=== PATIENT | female | born 2000 | race Caucasian/White ===

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

== ENCOUNTER → 2021-08-29 | Outpatient (CLI) | payer BC | LOC: COL.RAD 10:59 | DX: M51.34 Other intervertebral disc degeneration, thoracic region (principal); R63.4 Abnormal weight loss | CPT/HCPCS: Q9967 ==

== ENCOUNTER → 2022-10-11 | Day surgery (SDC) | payer BC ==
[~2022-10-11] VITALS: Ht 160 cm; Wt 46.6 kg
[~2022-10-11] MED LIST changes: +ADVIL200 MG PO; +APRI 0.15 MG-0.1 TAB PO; +CELEBREX50 MG; +NASONEX SPRAY17 GM NS; +NITRO-BID22 TOP; +PAMELOR 25MG25 MG PO; +PHARMASSURE ZIN50 MG PO; +PRENATAL TABLET PO; +PROCARDIA10 MG PO; +SINGULAIR 110 MG/TAB PO; +ZOFRAN 4MG T4 MG/TAB PO; +ZYRTEC 10MG10 MG PO
[2022-10-11 13:22] VITALS: BP 110/74; PULSE 87; TEMP 98.8
[2022-10-11 14:38] VITALS: BP 118/87; PULSE 96
--- NOTE | 2022-10-11 15:41 | NUR ---
Discharge instructions given to pt.pt verbalizes understanding.Pt escorted out by this nurse.
== END ==
LOC: COL.CAR 10-10 10:15 → EUO 11:30 → COL.CAR 11:30
DX: R00.0 Tachycardia, unspecified (principal); R06.02 Shortness of breath; Z86.16 Personal history of COVID-19; Z86.79 Personal history of other diseases of the circulatory system